=== PATIENT | female | born 1980 | race Caucasian/White ===

== ENCOUNTER 2024-01-22 13:33 | Outpatient (CLI) | payer OTHER, SELFPAY ==
--- NOTE | 2024-01-22 13:45 | MR_ITS ---
[address] [address] Phone:?[phone] Fax:?[phone] Referring Physician Information: Kendall Quinonez [address] [facility] [address] Phone:?[phone] Fax:?[phone] Patient:?Anne Huerta D.O.B:?1980 Sex:?Female Phone:?[phone] [facility] MRN:?[id number] Exam Date:?01/22/2024 EXAM: MRI of the RIGHT ANKLE, without contrast CLINICAL: Evaluate for peroneal tendinitis. COMPARISONS: X-rays dated 11/29/23. TECHNICAL: Multiplanar multisequence MRI of the right ankle was obtained. SEDATION: None. CONTRAST: None. FINDINGS: Achilles tendon: No tendinopathy or tear. No retrocalcaneal bursitis. Plantar fascia: Unremarkable. Tarsal tunnel: No masses identified. Sinus Tarsi:?Elongated ganglion cyst formation noted within the sinus Tarsi measuring approximately 18 mm in size as seen on sagittal series image 9-10. Ligaments: Anterior talofibular: Mild irregularity of the ligament may reflect sequelae of prior sprain injury. Calcaneofibular: Mild irregularity of the ligament may reflect sequelae of prior sprain injury. Posterior talofibular: No injury. Syndesmotic:?The anterior inferior and posterior inferior tibiofibular ligaments are intact. Deltoid: The deep and superficial components of the deltoid ligament are intact. Spring: Intact. Bifurcate and calcaneocuboid: Intact. Flexor tendons: Posterior tibial: Mild fluid about the tendon. No significant tendinosis or tendon tear. Flexor digitorum longus: Normal. Flexor hallucis longus: Normal. Peroneus brevis and longus: There is mild partial interstitial tearing of the peroneal brevis as it courses along the posterior distal fibula with moderate tendinosis and ill-defined partial tearing of the tendon as it courses distal to the distal fibula as seen on axial series 4 images 1-22. Peroneal longus tendon appears unremarkable. There is moderate to marked fluid about the coursing peroneal tendons. No significant peroneal tendon displacement. Extensor tendons: Tibialis anterior: Normal. Extensor hallucis longus: Normal. Extensor digitorum longus: Normal. Joints/Osseous structures: There is mild reactive marrow edema involving the lateral calcaneus adjacent to the peroneal tendons. No evidence of fracture or talar dome osteochondral lesion. Small effusion noted within the posterior subtalar joint with a small volume of fluid noted within the anterolateral tibiotalar joint recess. There is scattered edema involving the subcutaneous soft tissues of the ankle extending into the dorsal foot, nonspecific. IMPRESSION: 1. Mild partial interstitial tearing of the peroneal brevis tendon as it courses along the posterior distal fibula with moderate tendinosis and ill-defined partial tearing of the peroneal brevis tendon as it courses distal to the distal fibula. Moderate to marked tenosynovitis involving the peroneal tendons. 2. Mild fluid about the distal posterior tibialis tendon, which otherwise appears intact and unremarkable. 3. Mild irregularity of the anterior talofibular and calcaneofibular ligaments suggesting sequelae of prior sprain injuries. 4. Elongated ganglion cyst formation within the sinus Tarsi measuring approximately 18 mm in size. JCZ Electronically signed on 01/23/2024 1:22:00 PM by David Gonzalez D.O.
== END 2024-01-22 13:34 | disposition home or self-care (01) ==
LOC: MRI 13:34
PROVIDERS: PCP Family Medicine; Visit Provider Physician Assistant Surgical
DX: M25.571 Pain in right ankle and joints of right foot (principal); S96.911A Strain of unspecified muscle and tendon at ankle and foot level, right foot, initial encounter; M76.71 Peroneal tendinitis, right leg
CPT/HCPCS: 73721

== ENCOUNTER 2024-02-13 13:45 | Outpatient (RCR) | payer OTHER, SELFPAY ==
--- NOTE | 2024-01-02 10:23 | REH.PT ---
Clement Levine. I am reaching out as I am recommending that Norma have an MRI of her right ankle to rule out peroneal tendon tear. Her pain is not lessening with time and fairly basic exercises are aggravating to her symptoms, especially ex that challenge the peroneal tendons. Thank you for considering this. If you have any questions, please do not hesitate to message me back. I work Tuesdays & at this time. Take care, Zev Cisneros PT 2374
== END 2024-04-02 17:27 | disposition home or self-care (01) ==
PROVIDERS: PCP Family Medicine; Visit Provider Physician Assistant Surgical
DX: M76.71 Peroneal tendinitis, right leg (principal); M25.571 Pain in right ankle and joints of right foot; M62.81 Muscle weakness (generalized); S86.311D Strain of muscle(s) and tendon(s) of peroneal muscle group at lower leg level, right leg, subsequent encounter; R26.2 Difficulty in walking, not elsewhere classified; Z51.89 Encounter for other specified aftercare
CPT/HCPCS: 97110; 97112; 97161; 97530

== ENCOUNTER 2024-08-10 10:45 | Outpatient (RCR) | payer OTHER, SELFPAY | END 2024-10-19 11:18 | disposition home or self-care (01) | PROVIDERS: PCP Family Medicine; Visit Provider Orthopaedic Surgery | DX: R53.1 Weakness (principal); M25.571 Pain in right ankle and joints of right foot; R26.89 Other abnormalities of gait and mobility; Z98.890 Other specified postprocedural states; Z51.89 Encounter for other specified aftercare | CPT/HCPCS: 97110; 97116; 97140; 97161 ==

== ENCOUNTER 2024-09-25 15:05 | Emergency (ER) | payer OTHER, SELFPAY ==
--- OUTSIDE RECORDS SUMMARY | 2024-09-25 15:10 | XMS_ITS | Clinical Summary ---
Author Organization [facility] Address [address] [place] [address] Care Team Providers Care Academic Support Coordinator Name Role Phone Estephanie Gomez LOPEZ Unavailable Alondra Canas MD Primary Care Provider [phone] Master Granados MD Unavailable [phone] Allergies Active Allergy Reactions Criticality Noted Date Comments Avocado *Unknown,Itching 12/21/2022 Banana *Unknown,Itching 12/21/2022 Citalopram Intolerance-Can't Take somnolence Venlafaxine Analogues Intolerance-Can't Take hot flashes Latex Itching 07/26/2016 Unlisted Allergen (Include Detail In Comments) Other - Describe In Comment Field 01/02/2010 Pt is allergic to Vicryl suture material Vicryl suture material Medications phototherapy light box For home use. 1 unit 0 012 Active cholecalciferol (VITAMIN D) 1,000 unit capsule Take 1 capsule by mouth once daily. 0 019 Active multivitamin capsule Take 1 Capsule by mouth once daily. Active hydrocortisone 2.5% creamIndications :Dermatitis Apply topically to affected area(s) two times daily. To areas around eyes. Use until rash resolves (7-10 days) 30 g 024 Active albuterol HFA (PRO-AIR; VENTOLIN; PROVENTIL) 90 mcg/actuation inhalerIndicatio ns:Wheezing Inhale 1-2 Puffs by mouth every 4 hours if needed for Shortness Of Breath or Wheezing. 1 Each 024 Active tacrolimus 0.1% (PROTOPIC) 0.1 % ointmentIndicati ons:Eyelid dermatitis, allergic/contact Apply topically to affected area(s) two times daily. 60 g 024 Active traZODone (DESYREL) 50 mg tabletIndication s:Insomnia, unspecified type Take 1-2 Tablets (50-100 mg) by mouth at bedtime if needed for Sleep. 180 Tablet 1 024 Active LORazepam (ATIVAN) 0.5 mg tabIndications:P anic disorder without agoraphobia TAKE 1 OR 2 TABLETS BY MOUTH UP TO TWICE DAILY NEEDED FOR ACUTE ANXIETY 30 Tablet 024 Active esomeprazole delayed release capsule (NEXIUM) 40 mgIndications:Ga stric reflux Take 1 Capsule (40 mg) by mouth once daily before a meal. 90 Capsule 3 024 Active famotidine (PEPCID) 20 mg tabletIndication s:Gastric reflux Take 1 Tablet (20 mg) by mouth two times daily. 180 Tablet 3 024 Active busPIRone (BUSPAR) 30 mg tabletIndication s:Anxiety,MDD (major depressive disorder), recurrent episode, moderate (HC) Take 1 Tablet (30 mg) by mouth two times daily. 180 Tablet 3 025 Active buPROPion (WELLBUTRIN XL) 150 mg Extended-Release tabletIndication s:Dysthymia Take 2 Tablets (300 mg) by mouth once daily. 180 Tablet 3 025 Active vilazodone (VIIBRYD) 40 mg tabletIndication s:Dysthymia Take 1 Tablet (40 mg) by mouth once daily. 90 Tablet 2 025 Active tirzepatide (weight loss) 5 mg/0.5 mL subcutaneous vialIndications: Class 3 severe obesity due to excess calories without serious comorbidity with body mass index (BMI) of 40.0 to 44.9 in adult (HC),MADHAVI (obstructive sleep apnea) Inject 0.5 mL (5 mg) subcutaneous once weekly. 4 Each 025 Active cloNIDine HCL 0.1 mg tabletIndication s:Anxiety,ADHD, predominantly inattentive type TAKE 1 TABLET (0.1 MG) BY MOUTH AT BEDTIME. 90 Tablet 025 Active cloNIDine HCL (CATAPRES) 0.1 mg tabletIndication s:Anxiety,ADHD, predominantly inattentive type Take 1 Tablet (0.1 mg) by mouth at bedtime. 90 Tablet 025 2024 Discontinued Active Problems Problem Noted Date Diagnosed Date Paroxysmal SVT (supraventricular tachycardia) Severe episode of recurrent major depressive disorder, without psychotic features 12/21/2022 Controlled substance agreement signed 02/07/2021 Overview (02/07/2021): Estephanie Gomez DNP 02/07/2021 MADHAVI (obstructive sleep apnea) 07/28/2016 Overview (08/11/2020): Did not tolerate CPAP Sleep initiation disorder 07/10/2016 Depression, major, recurrent, moderate 6 Epigastric abdominal pain 01/01/2012 Overview (01/01/2012): EGD 12/2011 reflux ADD (attention deficit disorder) 04/20/2010 Mild recurrent major depression 01/02/2010 Overview (09/22/2015): Has tried trazodone years ago - made her too tired. Effexor gave her hot flashes. Celexa had some side effect Dysthymia 01/02/2010 Unspecified hypothyroidism 12/19/2009 Panic disorder without agoraphobia 07/15/2008 Overview (09/22/2015): Has tried trazodone years ago - made her too tired. Effexor gave her hot flashes. Celexa had some side effect Social anxiety disorder 07/15/2008 THYROID NODULE 12/06/2006 Overview (12/19/2009): Merchandise Displayer suggests repeat ultrasound October 2007 - if nodule = or > 1cm send for FNA Ultrasound shows no change from 9397-2026 Allergic rhinitis, cause unspecified Other acne Resolved Problems Problem Noted Date Diagnosed Date Resolved Date Controlled substance agreement signed 07/31/2016 06/26/2021 Overview (07/31/2016): Signed 05-27-12 Rhiannon Melissa, [employer]-, [employer]/psychiatry. Moderate recurrent major depression 07/15/2008 01/02/2010 Depressive disorder, not elsewhere classified 07/15/2008 Anxiety state, unspecified 0 07/15/2008 Encounters Date Type Department Care Team Description 09/02/2024 Refill [facility] [address] [place] [address] Estephanie Gomez NP Refill Request (Clonidine Hcl) 08/05/2024 Refill [facility] [address] [place] [address] Alondra Canas MD Refill Request (Zepbound) 07/17/2024 12:45 PM CDT Office Visit [facility] [address] [place] [address] Alondra Canas MD Weight 07/17/2024 Travel from Last 3 Months Immunizations Immunization Administration Dates Next Due COVID-19 vaccine (Tigerspike NTFitBark 30mcg/0.3mL) PF, MDV 03/14/2021,04/12/2020,03/23/2020 Influenza, IIV3 (Age >=3 years) 02/19/2024 Influenza, IIV4 01/26/2023,,01/29/2019,2016,01/03/2016,01/07/2015 Influenza, IIV4 (=>6mos) MDV 01/14/2021 Td (Age >=7 Years) 04/01/1996 Tdap 10/30/2017,07/10/2007 Family History Medical History Relation Name Comments Alcohol/Drug Father Allergies Father Other Father ,depression, Me niere's Diabetes Maternal Grandfather Hypertension Maternal Grandfather Cancer Maternal Grandmother esophag eal Cancer-breast Maternal Grandmother age 35 Other Mother fibrocystic cecy ast disease Cancer-breast Paternal Aunt Cancer-breast Paternal Grandmother Hyperlipidemia Paternal Grandmother Other Sister depression Relation Name Status Comments Father Maternal Grandfather Maternal Grandmother Mother Paternal Aunt Paternal Grandmother Sister Social History Tobacco Use Types Packs/Day Years Used Date Smoking Tobacco: Never Smokeless Tobacco: Never Tobacco Cessation:Counseling Given: Yes Alcohol Use Standard Drinks/Week Comments Not Currently 0 (1 standard drink = 0.6 oz pur e alcohol) rarely - wine PHQ-2 Answer Date Recorded PHQ-2 TOTAL SCORE 4 05/05/2024 Social Connections Answer Date Recorded Do you often feel lonely or isolated from those around you? 0 07/17/2024 Alcohol Use Answer Date Recorded How often do you have a drink containing alcohol ? 1 06/13/2021 How many drinks containing a lcohol do you have on a typical day when you are drinking? 0 06/13/2021 How often do you have five or more drinks on one occasion? 0 06/13/2021 Financial Resource Strain Answer Date R ecorded Difficulty of Paying Living Expenses 3 07/17/2024 Difficulty of Paying Living Expenses Not on file 07/17/2024 Food Insecurity Answer Date Recorded Do you worry your food will run out before you are able to buy more? 1 07/17/2024 Transportation Needs Answer Date Record ed Does lack of transportation keep you from medica l appointments? 1 07/17/2024 Does lack of transportation keep you from work, meetings or getting things that you need? 1 07/17/2024 Housing Stability Answer Date Recorded What is your housing situation today? 1 07/17/2024 Utilities Answer Date Recorded Do you have trouble paying f or utilities (for example, heat, electricity, water, phone)? 1 07/17/2024 Comments No Sex and Gender Information Value Date Recorded Sex Assigned at Not on file Legal Sex Female 5:20 AM WINDOW CLERK Gender Identity Not on file Sexual Orientation Straight 02/05/2020 7: 53 AM WINDOW CLERK Obstetrics History Para Term AB IAB SAB Ectopic Multiple Livin g Live Births 0 0 0 0 0 0 0 0 0 0 Last Filed Vital Signs Vital Sign Reading Time Taken Comments Blood Pressure 136/84 07/17/2024 12:47 PM CDT Pulse 72 07/17/2024 12:47 PM CDT Temperature 36.8 C (98.2 F) 04/14/2024 8:56 AM WINDOW CLERK Respiratory Rate 18 12/21/2022 9:27 AM CDT Oxygen Saturation 99% 07/17/2024 12:47 PM CDT Inhaled Oxygen Concentration - - Weight 116.1 kg (256 lb) 07/17/2024 12:47 PM CDT Height 165 cm (5' 4.96) 03/18/2024 10:38 AM WINDOW CLERK Body Mass Index 42.65 03/18/2024 10:38 AM WINDOW CLERK Plan of Treatment Upcoming Encounters Date Type Department Care Team (Late st Contact Info) Description 10/20/2024 9:35 AM CDT Office Visit [facility] [address] [place] [address] Alondra Canas MD [address] [place] [address] Health Maintenance Due Date Last Done Comments HIV for age 15-65 1993 Hepatitis C screening for ag e 18-79 1996 Hepatitis B series for 19+ ( 1 of 3 - 19+ 3-dose series) 1997 Pneumococcal series for age 6-49 (1 of 2 - PCV) 1997 COVID-19 vaccine series (2023- season) 2023 03/14/2021, 04/12/2020, 03/23/2020 Pap test for age 21-65 03/02/2024 9, 03/02/2019, 05/23/2015, Additional history exists Mammogram for age 45-75 05/03/2024 05/03/19 24, 05/11/2021, 01/21/2020 BMI (ht and wt on same day) for age 18+ 03/18/2025 03/18/2024, 05/01/2023, 09/01/2020, Additional history exists Depression screening for age 12+ 05/06/2025 05/06/2024, 05/05/2024, 01/20/2024, Additional history exists Tetanus booster 10/31/2027 10/30/2017, 06/30, 04/01/1996 Lipids for age 45-75 03/18/2029 03/18/2024, 05/01/2023, 05/04/2022, Additional history exists Colonoscopy through age 75 03/13/2034 03/13/2024 Tdap Completed 10/30/2017, 07/10/2007 Influenza Vaccine Completed 02/19/2024, , 01/15/2022, Additional history exists Procedures Procedure Name Priority Date/Time Associated Diagnosis Comments LIPID PANEL W REFLEX MEASURED LDL Routine 03/18/2024 11:11 AM WINDOW CLERK Lipid screening COLONOSCOPY SCREENING Routine 03/13/2024 12:00 AM WINDOW CLERK Screening for colon cancer XR MAMMO CHINYERE BILAT SCREEN Routine 05/03/2023 11:37 AM WINDOW CLERK Visit for screening mammogram AIR BAG BUILDER THIN PREP PAP SCREEN IMAGED Routine 03/02/2019 9:45 AM WINDOW CLERK Screening for cervical cancer from Last 3 Months or Most Recently Relevant to Health Maintenance Results * LIPID PANEL W REFLEX MEASURED LDL (03/18/2024 11:11 AM WINDOW CLERK) CHOLESTEROL, TOTAL 154 <200 mg/dL [facility] HDL CHOLESTEROL 63 > OR = 50 mg/dL [facility] TRIGLYCERIDES 66 <150 mg/dL [facility] LDL-CHOLESTEROL 76 mg/dL (calc) [facility] Comment: Reference range: <100 Desirable range <100 mg/dL for primary prevention; <70 mg/dL for patients with CHD or diabetic patients with > or = 2 CHD risk factors. LDL-C is now calculated using the Killian-Damian calculation, which is a validated novel method providing better accuracy than the Friedewald equation in the estimation of LDL-C. Killian TESFAYE et al. MALI. 2013;310(19): 1825-1366 (http://education.Uber.com.idemama/faq/WJP667) CHOL/HDLC RATIO 2.4 <5.0 (calc) [facility] NON HDL CHOLESTEROL 91 <130 mg/dL (calc) [facility] Comment: For patients with diabetes plus 1 major ASCVD risk factor, treating to a non-HDL-C goal of <100 mg/dL (LDL-C of <70 mg/dL) is considered a therapeutic option. Blood BLOOD SPECIMEN / Unknown 03/18/2024 11:11 AM WINDOW CLERK 03/18/2024 11:12 AM WINDOW CLERK Narrative [facility] - 03/19/2024 4:33 AM WINDOW CLERK FASTING:NO FASTING: NO Alondra Canas MD CHEMISTRY Final Resul t [facility] [address] [place] [address], [facility] [address] [place] [address] * COLONOSCOPY SCREENING (03/13/2024 12:00 AM WINDOW CLERK) Alondra Canas MD GI PROCEDURE ORD Final Resu lt * XR MAMMO CHINYERE BILAT SCREEN (05/03/2023 11:37 AM WINDOW CLERK) Anatomical Region Laterality Modality BREASTS, Breast Left, Breast Right Bilateral Mammography Impressions 05/03/2023 3:51 PM WINDOW CLERK There is no radiographic evidence for malignancy. Recommend annual mammograms. MAMMOGRAM ASSESSMENT: ACR 1 Negative PATIENTS: You will also receive a letter with your examination results in an easy to read format. If you have questions about your results, please contact your referring provider. Narrative 05/03/2023 3:51 PM WINDOW CLERK For Patients: As a result of the Century Cures Act, medical imaging exams and procedure reports are released immediately into your electronic medical record. You may view this report before your referring provider. If you have questions, please contact your health care provider. XR MAMMO CHINYERE BILAT SCREEN [[id number]] CLINICAL HISTORY: This is an asymptomatic 42 y.o. patient. INDICATION FOR EXAM: Mammogram Screening. TECHNIQUE: CC & MLO views were obtained. This study was evaluated with the assistance of Computer-Aided Detection. Breast Tomosynthesis was used in interpretation. COMPARISON FILM: Yes 05/11/21 [facility] 01/21/20 [facility] FINDINGS: The breasts have scattered areas of fibroglandular density. There are no dominant masses, suspicious micro calcifications or areas of architectural distortion. Alondra Canas MD MAMMO Final Resul t * AIR BAG BUILDER THIN PREP PAP SCREEN IMAGED [[id number]] (03/02/2019 9:45 AM WINDOW CLERK) Case Report Gynecologic Cytology Report Case: [id number] Authorizing Provider: Debbie Beltran MD Collected: 03/02/2019 0945 Ordering Location: [facility] Received: 03/02/2019 1450 Clinic First Screen: Maribeth Baeza Specimen: AIR BAG BUILDER ThinPrep Vial Screening, Cervical 03/11/2019 7:50 AM WINDOW CLERK [facility] INTERPRETATION/ RESULT NEGATIVE FOR INTRAEPITHELIAL LESION OR MALIGNANCY (NIL) (none) 03/11/2019 7:50 AM WINDOW CLERK [facility] at 0750 WINDOW CLERK SPECIMEN ADEQUACY Satisfactory for evaluation Endocervical component present 03/11/2019 7:50 AM WINDOW CLERK [facility] HPV REQUEST HPV and PAP 03/11/2019 7:50 AM WINDOW CLERK [facility] Date of LMP 02/09/19 03/11/2019 7:50 AM WINDOW CLERK [facility] Last Pap Date 05/23/15 03/11/2019 7:50 AM WINDOW CLERK [facility] Last Pap Result NIL 9 7:50 AM WINDOW CLERK [facility] Abnormal Pap or [place] Bx in last 5 years No 03/11/2019 7:50 AM WINDOW CLERK [facility] Menstrual Status Regular Periods 03/11/2019 7:50 AM WINDOW CLERK [facility] [place] Bx Done Today No 03/11/2019 7:50 AM WINDOW CLERK [facility] Additional Information None given 03/11/2019 7:50 AM WINDOW CLERK [facility] Automated Review Successful 03/11/2019 7:50 AM WINDOW CLERK [facility] Comment:Specimen processed s uccessfully by automated veterinary radiologist device, ThinPrep Imaging System, [employer] ANCILLARY TESTING AIR BAG BUILDER HPV Ordered, Please see separate report 03/11/2019 7:50 AM WINDOW CLERK [facility] Note The pap test is a screening technique, not a diagnostic procedure. It is used primarily to screen for squamous cancers and precursor lesions. Published studies have shown that it is subject to both false negative and false positive results. The pap test should not be used as the sole means to diagnose or exclude pre-malignant and malignant lesions. Cytology is screened and interpreted at [facility] - [address], [place] [address] and [facility] - [address]; [place] [address] and [facility] - [address]; [place] [address] and [facility] [address]; [place] [address] 03/11/2019 7:50 AM WINDOW CLERK [facility] Other (Cervical) Non-Blood / Unknown 03/02/2019 9:45 AM WINDOW CLERK 03/02/2019 2:50 PM WINDOW CLERK us Debbie Beltran MD PATHOLOGY/CYTOLOGY Final Resu lt [facility] [address] [place] [address], from Last 3 Months or Most Recently Relevant to Health Maintenance Insurance [facility] Care Teams Academic Support Coordinator Relationship Specialty Start Date End Date Alondra Canas MD [address] [place] [address] PCP - General Family Practice 09/27/22 Estephanie Gomez NP [address] [place] [address] Psychiatry Nurse Practitioner 07/26/20 Master Granados MD [address] [place] [address] Psychiatry 01/08/23
--- OUTSIDE RECORDS SUMMARY | 2024-09-25 15:11 | XMS_ITS | Clinical Summary ---
[facility] Address [address] [place] [address] Care Team Providers Care Dried Yeast Supervisor Name Role Phone Unavailable Primary Care Provider Unavailabl e Source Comments You are receiving this document as you are listed as the primary care provider,follow-up provider, or the patient has been referred to you for consultation.This is in compliance with the Medicare and[facility] EHR Incentive Program,which states Providers who transition their patient to another setting of careor provider of care or refers their patient to another provider of care shouldprovide summary care record for each transition of care or referral. [facility] Allergies Active Allergy Reactions Criticality Noted Date Comments Avocado Itching 02/01/2023 Banana Itching 02/01/2023 Latex Itching 02/01/2023 Other Other, see comments 02/01/2023 Vicryl suture material Medications buPROPion (WELLBUTRIN XL) 150 MG 24 hour release tablet Take 2 Tablets (300 mg) by mouth daily. 2022 Active LORazepam (ATIVAN) 0.5 MG tablet SMARTSI-2 Tablet(s) By Mouth 1-2 Times Daily PRN 03/19/2022 Active traZODone (DESYREL) 50 MG tablet Take 0.5-1 Tablets (25-50 mg) by mouth at bedtime as needed. 04/30/2022 Active spironolactone (ALDACTONE) 100 MG tablet Take by mouth. 07/21/2022 Active busPIRone (BUSPAR) 10 MG tablet Take by mouth. 01/29/2023 Active vilazodone (VIIBRYD) 40 MG tablet Take 1 Tablet (40 mg) by mouth daily. 12/06/2022 Active Cholecalciferol (VITAMIN D-3 OR) Active Multiple Vitamin (MULTIVITAMINS OR) Active tamsulosin (FLOMAX) 0.4 MG CAPS capsule Take 1 Capsule (0.4 mg) by mouth daily for 14 days. 14 Capsule 02/01/2023 Active Active Problems No known active problems Social History Tobacco Use Types Packs/Day Years Used Date Smoking Tobacco: Never Tobacco Cessation:Counseling Given: Not Answered Comments No Sex and Gender Information Value Date Recorded Sex Assigned at Not on file Legal Sex Female 2:54 PM CDT Gender Identity Not on file Sexual Orientation Not on file Last Filed Vital Signs Vital Sign Reading Time Taken Comments Blood Pressure 154/88 07/04/2023 9:37 AM CDT Pulse 100 07/04/2023 9:37 AM CDT Temperature 37.9 C (100.2 F) 07/04/2023 9:37 AM CDT Respiratory Rate 16 07/04/2023 9:37 AM CDT Oxygen Saturation 100% 07/04/2023 9:37 AM CDT Inhaled Oxygen Concentration - - Weight - - Height - - Body Mass Index - - Plan of Treatment Health Maintenance Due Date Last Done Comments Cervical Cancer Screening Due 1978 Colon Cancer Screening Plan Due 1978 Hep C Screening (Preventive Services) 1978 Mammogram 1978 HIV Screening (Preventive Services) 1994 Adult Preventive Visit 1996 HepB Vaccine (1) 1997 Cholesterol 07/17/2023 COVID-19 Vaccine ( season) 2023 03/14/2021, 04/12/2020, 03/23/2020 Influenza Vaccine (Season Ended) 2024 01/26/2023, 01/15/2022, 01/14/2021, Additional history exists DTaP/Tdap/Td Vaccine (3 - Tdap) 10/31/2027 10/30/2017, 07/10/2007 Zoster/Shingles Vaccine (1 of 2) 2028 HepA Vaccine Aged Out No longer eligi ble based on patient's age to complete this topic Hib Vaccine Aged Out No longer eligi ble based on patient's age to complete this topic IPV (Polio) Vaccine Aged Out No longe r eligible based on patient's age to complete this topic MCV4 Vaccine Aged Out No longer eligi ble based on patient's age to complete this topic Meningococcal B Vaccine Aged Out No l onger eligible based on patient's age to complete this topic Pneumococcal Vaccine Aged Out No long er eligible based on patient's age to complete this topic Insurance [facility]
[2024-09-25 15:22] VITALS: BP 149/88; PULSE 88; RESP 18; TEMP 36.8; O2SAT 98
[2024-09-25 16:19] LABS: Basophils Percent Auto 0.1 % (0.0-3.0); Hemoglobin* 14.4 gm/dL (12.0-16.0); Immature Granulocytes Pct Auto 0.2 %; Lymphocytes Percent Auto 11.4 % (20-44); Mean Corpuscular HGB Conc 34 gm/dL (32-36); Mean Corpuscular Hemoglobin 33 pg (26-34); Mean Corpuscular Volume 97 fL (80-100); Monocytes Percent Auto 4.4 % (0.0-11.0); Neutrophils Percent Auto 83.9 % (42.0-72.0); Platelet Count* 345 K/uL (140-440); RDW Coefficient of Variation % 11.7 % (11.5-15.5); Red Blood Count 4.35 m/uL (4.00-5.20)
[2024-09-25 16:22] LABS: Slide Review Reflex No
[2024-09-25 16:54] LABS: Chloride* 106 mmol/L (96-114); Potassium* 4.5 mmol/L (3.6-5.1); Sodium* 139 mmol/L (135-149)
[2024-09-25 16:57] LABS: Anion Gap 9 mEq/L (7-15); Blood Urea Nitrogen* 20 mg/dL (5-24); Calcium* 9.6 mg/dL (8.4-10.6); Carbon Dioxide* 24 mmol/L (20-32); Creatinine* 0.9 mg/dL (0.5-1.5); Estimated Glomerular Filt Rate 80 ml/min; Glucose* 116 mg/dL (60-115)
[2024-09-25 17:05] LABS: Troponin I* < 0.01 ng/mL (0.01-0.04)
--- NOTE | 2024-09-25 17:09 | ED.GENADULT ---
HPI - General Adult General Date Seen: 09/25/24 Chief complaint: Unspecified Complaint, Adult Stated complaint: Anxiety Time Seen by Provider: 09/25/24 15:26 History of Present Illness HPI narrative: Patient is a 44-year-old here for evaluation of an episode of lightheadedness associated with feeling sweaty and some recent pain in her left upper back as well as some facial tingling. She says that she always has a little bit of trouble with some upper left back pain, but had more spasm developed over the past couple of days, was seen in urgent care yesterday and prescribed prednisone as well as tizanidine. She started these last night. She works in Labor and delivery here, was at work today, walking down the hallway, she started to feel like she was a little sweaty and lightheaded, felt a little faint. She does have underlying anxiety, says that she started to feel extremely anxious about her heart, tried to talk herself down as she realizes that it is likely nothing heart related, they but became more and more anxious and panicky and ultimately decided to come get it checked out. She does not have any chest pain, the pain in her left upper back remains the same and still feels like muscle spasm. She does not have any pain in her neck, she has this tingling in her left face but does not have any true numbness, has not had any other neurologic changes, no headache. She has no prior cardiac history, she says her [id number] had a heart attack at about her age and so it has been a little bit on her mind. She does not smoke or drink. She does have Ativan which she takes when she feels really anxious but she has not taken any of that recently as she tries to avoid it when she can. She is wondering if the prednisone may have set some of this off. The lightheadedness and sweatiness have improved but she just feels shaky and anxious at this point. Related Data Home Medications ?Medication ?Instructions ?Recorded ?Confirmed bupropion HCl 150 mg 24 hr tablet, mg PO 11/29/23 09/23/24 extended release buspirone 30 mg tablet 30 mg PO BID 11/29/23 09/25/24 trazodone 50 mg tablet 50 - 100 mg PO QPM PRN insomnia 11/29/23 09/25/24 vilazodone 40 mg tablet 40 mg PO DAILY 11/29/23 09/25/24 lorazepam 0.5 mg tablet 0.5 - 1 mg PO .prn PRN anxiety 12/03/23 09/25/24 attack tirzepatide (weight loss) 2.5 5 mg subcut QWEEK 09/23/24 09/25/24 mg/0.5 mL subcutaneous pen injector (Zepbound) albuterol 90 mcg/actuation aerosol 90 - 180 mcg inhalation Q4H PRN 09/25/24 09/25/24 inhaler clonidine HCl 0.1 mg tablet 0.1 mg PO QPM 09/25/24 09/25/24 esomeprazole magnesium 40 mg 40 mg PO DAILY 09/25/24 09/25/24 capsule,delayed release famotidine 20 mg tablet 20 mg PO BID 09/25/24 09/25/24 prednisone 20 mg tablet 20 mg PO QDAY 09/25/24 09/25/24 tacrolimus 0.1 % topical ointment 1 applic topical DAILY 09/25/24 09/25/24 Previous Rx's ?Medication ?Instructions ?Recorded tizanidine 2 mg capsule 2 mg PO TID PRN muscle spasticity 09/23/24 #30 caps Allergies Allergy/AdvReac Type Severity Reaction Status Date / Time banana Allergy itching Verified 09/25/24 15:22 mouth latex Allergy itching Verified 09/25/24 15:22 mouth vicryl sutures Allergy Uncoded 09/23/24 11:24 Review of Systems Status of ROS: Reports: 10 or more systems reviewed and unremarkable except as noted in History and below [facility] Medical History Allergic rhinitis ?J30.9 - Allergic rhinitis, unspecified (ICD-10) Surgical History History of carpal tunnel surgery of right wrist (07/27/09) ?Z98.890 - Other specified postprocedural states (ICD-10) History of fasciotomy ?Z98.890 - Other specified postprocedural states (ICD-10) History of esophagogastroduodenoscopy (EGD) (12/2011) ?Z98.890 - Other specified postprocedural states (ICD-10) History of carpal tunnel surgery of left wrist (12/15/08) ?Z98.890 - Other specified postprocedural states (ICD-10) Family History Grandmother Esophageal cancer Social History Smoking Status: Never smoker Do you use any of these nicotine containing products: None Second hand tobacco smoke exposure: No How often do you have a drink containing alcohol: never AUDIT-C Alcohol total score: 0 Non-prescribed substance use: denies use service: No Exam Narrative: Exam Narrative: Vital signs reviewed In general, alert, nontoxic med age woman. Head: Normocephalic, atraumatic. Eyes: Sclera clear. Pupils equal and reactive. ENT: Mucous membranes moist. Neck: Supple without adenopathy. Heart: Regular rate and rhythm without murmur. Lungs: Clear. No increased work of breathing, crackles or wheezes. Abdomen: Soft, nontender to palpation. Back: Reproducible muscle spasm in the trapezius and rhomboid muscle on the left. Extremities: Well perfused, pulses intact. No significant edema. Neurologic: Alert, conversant. Speech fluent, face symmetric at rest, moves symmetrically, sensation intact bilaterally. Moves all extremities equally. Strength is 5 of 5 bilaterally, sensation intact to light touch. Skin: Warm, dry well perfused. Affect: Anxious, little tearful. Const: Vital Signs, click to edit/add: Vital Signs - 24 hr 09/25/24 15:22 09/25/24 17:35 Temperature 98.3 F Pulse Rate [Pulse Oximeter] 88 83 Respiratory Rate 18 14 Blood Pressure [Ri ght Upper Arm] 149/88 H 117/69 Pulse Oximetry 98 97 Oxygen Delivery Me thod Room Air Room Air Course Course ED Course: We had a long talk about her symptoms and how to pursue this. We did talk about her facial tingling, discussed that we could pursue CT of the head, CT angiogram, MRI etcetera, she does not feel that these symptoms represent stroke and does not feel strongly about pursuing that. I would agree I think the likelihood is low given her age, absence of risk factors, absent objective findings and presence of positive rather than negative neurologic symptoms. We will defer that evaluation for today. Regarding her other symptoms, we are going to do an EKG and some basic blood work to intra clear to troponin. She does seem very anxious to me, I recommended that we try giving her a dose of Ativan, will let her remain here for a little bit of time, observation and see how she is feeling. She does not have any tenderness of her neck or neurologic symptoms to make me concerned for dissection, no vertigo or ataxia. An EKG showed a sinus rhythm ventricular rate of 83. There is baseline waver related I think her shakiness, but I do believe this is a sinus rhythm. No acute ST segment changes. T-waves are slightly flat in the lateral leads but otherwise unremarkable. Patient's point of care troponin was reportedly elevated at 0.09, but they noted that the volume of blood was low which is commonly associated with false positive troponin levels. Therefore we did do a troponin I and this is reassuring at less than 0.01. Her white blood cell count is slightly elevated at 12.3 which is likely related to her prednisone. Hemoglobin is 14.4 electrolytes normal, blood sugar 116. Discussed results with her. She is feeling improved, the Ativan helped her shakiness and anxiety, she feels much better knowing that her EKG and troponin are reassuring. She is comfortable going home. She does have a therapist who she sees regularly. We talked about some of the stressors that she is currently dealing with, it sounds as of late she has mechanisms in place to help cope with those. With regard to the muscle spasm, I did recommend for the next couple of nights she just use her Ativan at bedtime as I think that will help more with the muscle spasm and also with anxiety. After that, if she would prefer to switch back to the tizanidine if she still has some spasm that would be reasonable. Primary care follow-up for ongoing concerns, return any time for significant worsening. Vital Signs Vital signs: Initial Vital Signs Temperature 98.3 F 09/25/24 15:22 Temperature Source Temporal Artery Scan 09/25/24 15:22 Pulse Rate 88 09/25/24 15:22 Respiratory Rate 18 09/25/24 15:22 Blood Pressure 149/88 H 09/25/24 15:22 Blood Pressure Mean 108 H 09/25/24 15:22 Blood Pressure Position Sitting 09/25/24 15:22 Pulse Oximetry 98 09/25/24 15:22 Oxygen Delivery Method Room Air 09/25/24 15:22 Vital Signs Temperature 98.3 F 09/25/24 15:22 Pulse Rate 88 09/25/24 15:22 Respiratory Rate 18 09/25/24 15:22 Blood Pressure 149/88 H 09/25/24 15:22 Pulse Oximetry 98 09/25/24 15:22 Oxygen Delivery Method Room Air 09/25/24 15:22 Temperature 98.3 F 09/25/24 15:22 Pulse Rate 83 09/25/24 17:35 Respiratory Rate 14 09/25/24 17:35 Blood Pressure 117/69 09/25/24 17:35 Pulse Oximetry 97 09/25/24 17:35 Oxygen Delivery Method Room Air 09/25/24 17:35 Medical Decision Making Lab Data Labs: Lab Results 09/25/24 09/25/24 Range/Units 15:56 16:30 WBC 12.30 H (4.50-11.00) K/uL RBC 4.35 (4.00-5.20) m/uL Hgb 14.4 (12.0-16.0) gm/dL Hct 42.0 (33.0-51.0) % MCV 97 (80-100) fL MCH 33 (26-34) pg MCHC 34 (32-36) gm/dL RDW Coeff of Davey 11.7 (11.5-15.5) % Plt Count 345 (140-440) K/uL Neut % (Auto) 83.9 H (42.0-72.0) % Lymph % (Auto) 11.4 L (20-44) % [place] % (Auto) 4.4 (0.0-11.0) % Eos % (Auto) 0.0 (0.0-7.0) % Baso % (Auto) 0.1 (0.0-3.0) % Neut # (Auto) 10.30 H (1.7-7.0) K/uL Lymph # (Auto) 1.40 (0.90-2.90) K/uL [place] # (Auto) 0.50 (0.00-0.90) K/UL Eos # (Auto) 0.00 (0.00-0.50) K/uL Baso # (Auto) 0.00 (0.00-0.30) K/uL Abs Immat Gran (auto) 0.00 (0.00-0.30) K/uL Imm/Tot Granulo (auto) 0.2 % Sodium 139 (135-149) mmol/L Potassium 4.5 (3.6-5.1) mmol/L Chloride 106 (96-114) mmol/L Carbon Dioxide 24 (20-32) mmol/L Anion Gap 9 (7-15) mEq/L BUN 20 (5-24) mg/dL Creatinine 0.9 (0.5-1.5) mg/dL Estimated GFR 80 ml/min Glucose 116 H (60-115) mg/dL Calcium 9.6 (8.4-10.6) mg/dL Troponin I < 0.01 (0.01-0.04) ng/mL Discharge Plan Discharge Clinical Impression: Muscle spasm, Anxiety Patient Disposition: Home, Self-Care Condition: Improved Instructions: Muscle Spasm (ED), Anxiety (ED) Additional Instructions: Return any time if you are feeling worse. As discussed, I would recommend taking your Ativan at home the next night or 2. After that, you can resume the tizanidine if you are still having problems with muscle spasm. See your primary doctor as needed. See your therapist as planned Prescriptions: No Action lorazepam 0.5 mg tablet 0.5 - 1 mg PO .prn PRN (Reason: anxiety attack) bupropion HCl 150 mg tablet extended release 24 hr PO vilazodone 40 mg tablet 40 mg PO DAILY buspirone 30 mg tablet 30 mg PO BID trazodone 50 mg tablet 50 - 100 mg PO QPM PRN (Reason: insomnia) Zepbound 2.5 mg/0.5 mL pen injector 5 mg subcut QWEEK Rx Instructions: for 4 weeks tizanidine 2 mg capsule 2 mg PO TID PRN (Reason: muscle spasticity) Qty: 30 0RF Rx Instructions: Start: 2 mg every 6-8h prn for up to 3 doses/24h, may increase by 2-4 mg/dose every 1-4 days; Max: 36 mg/day; give consistently w/ food or on empty stomach; taper dose by 2-4 mg/day to discontinue if prolonged high-dose use albuterol 90 mcg/actuation aerosol 90 - 180 mcg inhalation Q4H PRN clonidine HCl 0.1 mg tablet 0.1 mg PO QPM famotidine 20 mg tablet 20 mg PO BID esomeprazole magnesium 40 mg capsule,delayed release(DR/EC) 40 mg PO DAILY tacrolimus 0.1 % ointment 1 applic topical DAILY prednisone 20 mg tablet 20 mg PO QDAY Rx Instructions: Take 2 tabs PO QAM x 5 days Follow Up/Referrals: Alondra Canas MD [Primary Care Provider, Family Practice] Stand Alone Forms: Hosted [employer] Info Instructions
[2024-09-25 17:35] VITALS: BP 117/69; PULSE 83; RESP 14; O2SAT 97
[2024-09-30 08:51] LABS: Troponin, Point-of-Care* 0.09 ng/ml (0.01-0.04)
== END 2024-09-25 18:29 | disposition home or self-care (01) ==
PROVIDERS: Emergency Provider Emergency Medicine; PCP Family Medicine
DX: M62.838 Other muscle spasm (principal); F41.9 Anxiety disorder, unspecified
CPT/HCPCS: 36415; 80048; 84484; 85025; 93005; 99284

== ENCOUNTER 2025-03-30 19:29 | Outpatient (CLI) | payer OTHER, SELFPAY ==
--- NOTE | 2025-03-30 19:45 | CRLHL7_ITS ---
For Patients: As a result of the 21st Century Cures Act, medical imaging exams and procedure reports are released immediately into your electronic medical record. You may view this report before your referring provider. If you have questions, please contact your health care provider. EXAM: MRI OF THE LEFT SHOULDER, WITHOUT CONTRAST CLINICAL INDICATION: Shoulder pain. PRIOR SURGERY: None reported. COMPARISON PLAIN FILMS: None available at time of interpretation. COMPARISON CROSS-SECTIONAL IMAGING STUDIES: None available at time of interpretation. TECHNICAL: Axial, sagittal oblique and coronal oblique T1, PD, PD FS and T2-weighted images. FINDINGS: GLENOHUMERAL JOINT: Effusion/Cyst: Physiologic quantity of joint fluid. No synovitis. No paralabral or periarticular cyst or ganglion. Humeral Head Articular Cartilage: No osteochondral lesion or abnormality. Glenoid Articular Cartilage: No osteochondral lesion or abnormality. Loose Bodies: No appreciable loose bodies. Capsule: No convincing evidence of adhesive capsulitis or capsular injury. OSSEOUS STRUCTURES: No fracture, marrow edema or marrow replacement process. CORACOACROMIAL ARCH: Acromial Morphology: Type 2 acromial morphology. Slight lateral downsloping. No os acromiale. No significant subacromial spur. Lateral acromial thickness is 6 mm. Acromiohumeral Interval: The acromiohumeral interval is adequately patent. At its narrowest, the interval measures 7 mm. No abnormal thickening of the coracoacromial ligament. Coracohumeral Interval: The coracohumeral interval is normal. At its narrowest, the coracohumeral interval measures 10 mm. Coracoid index is 11 mm. ACROMIOCLAVICULAR JOINT REGION: AC Joint: Small effusion with edematous capsular thickening. Subchondral edema few subchondral cysts clavicle and acromion. No significant inferior osteophyte. Ligaments: The coracoclavicular ligaments are intact. BURSAE: Subacromial-Subdeltoid: No abnormal bursal edema, thickening or bursal fluid. Subcoracoid: No abnormal bursal edema, thickening or bursal fluid. ROTATOR CUFF TENDONS AND MUSCLES AND DELTOID: Supraspinatus: Hazy mild disorganized intermediate signal tendinosis without tearing. No atrophy or edema in the muscle. Infraspinatus: Mild tendinosis substance and articular margin without tear. Intact foot plate. Normal muscle bulk and signal. Teres Minor: No tendinosis, tendon tearing, muscle atrophy or muscle edema. Subscapularis: Minor intrasubstance tendinosis in the insertion. No tear. No atrophy or edema in the muscle. Deltoid: No muscle atrophy or edema. BICEPS TENDON, LONG HEAD: The long head of the biceps tendon is appropriately positioned within the bicipital groove without tendon subluxation or dislocation. The biceps gosia mechanism is intact. The biceps anchor appears grossly intact. There is no significant tendinosis or tendon tearing. GLENOID LABRUM: Within the limitations of non-arthrographic technique, the superior labrum and biceps-labral complex are intact. The anteroinferior labrum is intact without Bankart or Bankart-variant labral tear. The remainder of the labrum is similarly intact. OTHER FINDINGS: There is no abnormality within the suprascapular or spinoglenoid notches nor within the quadrilateral space. No axillary adenopathy or mass. IMPRESSION: 1. 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 Slight lateral downsloping of the acromion however normal acromial humeral distance. 2. Patchy tendinosis supraspinatus greater than infraspinatus and subscapularis without significant tearing. Dictated by Francisco Sanford MD @ 03/31/2025 11:31:19 AM (Electronically Signed)
== END 2025-03-30 19:30 | disposition home or self-care (01) ==
LOC: MRI 19:30
PROVIDERS: PCP Family Medicine; Visit Provider Family Medicine
DX: M25.512 Pain in left shoulder (principal); M19.012 Primary osteoarthritis, left shoulder; G89.29 Other chronic pain
CPT/HCPCS: 73221